=== PATIENT | male | born 1955 | race Two or more races ===

== ENCOUNTER 2017-01-25 13:12 | Emergency (ER) | payer OTHER ==
[~2017-01-25] VITALS: Ht 172.7 cm; Wt 83.8 kg
[2017-01-25 13:30] VITALS: BP 139/72
[2017-01-25] MEDS ORDERED: LIDOCAINE 1%, 20ML ONE (14:04)
[2017-01-25] MEDS ORDERED: DIPH,PERTUSS(ACELL),TET VAC/PF 0.5 ML IM-VACC ONE ×2 (14:04→14:30)
[2017-01-25] MEDS ORDERED: LIDOCAINE 1%, 20ML SQ ONE (14:30)
== END 2017-01-25 14:57 | disposition home or self-care (01) ==
LOC: ED 14:51
DX: S60.551A Superficial foreign body of right hand, initial encounter (principal); X58.XXXA Exposure to other specified factors, initial encounter; Y93.89 Activity, other specified; Y92.89 Other specified places as the place of occurrence of the external cause; Y99.8 Other external cause status
CPT/HCPCS: 10120; 90471; 90715